=== PATIENT | male | born 1990 | race Two or more races ===

== ENCOUNTER → 2024-09-13 | Outpatient (BNVA) | payer MEDICAID, SELFPAY | END | disposition home or self-care (01) | PROVIDERS: PCP Nurse Practitioner Primary Care; Referring Provider Nurse Practitioner Primary Care; Visit Provider Nurse Practitioner Primary Care | DX: Z76.89 Persons encountering health services in other specified circumstances (principal); R10.13 Epigastric pain | CPT/HCPCS: 99203 ==

== ENCOUNTER → 2024-10-21 | Outpatient (BNVA) | payer MEDICAID, SELFPAY | END | disposition home or self-care (01) | PROVIDERS: PCP Nurse Practitioner Primary Care; Referring Provider Nurse Practitioner Primary Care; Visit Provider Nurse Practitioner Primary Care | DX: Z00.01 Encounter for general adult medical examination with abnormal findings (principal); A04.8 Other specified bacterial intestinal infections; Z13.220 Encounter for screening for lipoid disorders; Z71.3 Dietary counseling and surveillance; Z13.1 Encounter for screening for diabetes mellitus; Z13.21 Encounter for screening for nutritional disorder; Z13.29 Encounter for screening for other suspected endocrine disorder; Z11.3 Encounter for screening for infections with a predominantly sexual mode of transmission; Z71.85 Encounter for immunization safety counseling; Z13.31 Encounter for screening for depression | CPT/HCPCS: 99173; 99385; G0438 ==

== ENCOUNTER → 2024-10-31 | Outpatient (BNVA) | payer MEDICAID, SELFPAY | END | disposition home or self-care (01) | PROVIDERS: PCP Nurse Practitioner Primary Care; Referring Provider Nurse Practitioner Primary Care; Visit Provider Nurse Practitioner Primary Care | DX: E55.9 Vitamin D deficiency, unspecified (principal); A04.8 Other specified bacterial intestinal infections | CPT/HCPCS: 99212; 99213; G0463 ==

== ENCOUNTER → 2024-11-03 | Outpatient (BNVA) | payer MEDICAID, SELFPAY | END | disposition home or self-care (01) | PROVIDERS: PCP Nurse Practitioner Family; Referring Provider Nurse Practitioner Family; Visit Provider Nurse Practitioner Family | DX: Z71.89 Other specified counseling (principal); A04.8 Other specified bacterial intestinal infections | CPT/HCPCS: 99213 ==

== ENCOUNTER → 2024-12-30 | Outpatient (BNVA) | payer MEDICAID, SELFPAY | END | disposition home or self-care (01) | PROVIDERS: PCP Nurse Practitioner Primary Care; Referring Provider Nurse Practitioner Primary Care; Visit Provider Nurse Practitioner Primary Care | DX: A04.8 Other specified bacterial intestinal infections (principal); Z71.3 Dietary counseling and surveillance; F10.10 Alcohol abuse, uncomplicated | CPT/HCPCS: 99213 ==

== ENCOUNTER → 2025-01-11 | Outpatient (BNVA) | payer MEDICAID, SELFPAY | END | disposition home or self-care (01) | PROVIDERS: PCP Nurse Practitioner Primary Care; Referring Provider Nurse Practitioner Primary Care; Visit Provider Nurse Practitioner Primary Care | DX: A04.8 Other specified bacterial intestinal infections (principal); Z23 Encounter for immunization | CPT/HCPCS: 90471; 90686; 99213 ==